=== PATIENT | male | born 1955 | race Caucasian/White ===

== ENCOUNTER 2017-04-05 11:14 | Day surgery (SDC) | payer BC ==
[2017-04-03 13:05] LABS: HEMATOCRIT 30.1 % (40.0-51.0); HEMOGLOBIN 10.4 g/dL (13.6-17.8)
[2017-04-03 13:18] LABS: BUN (BLOOD UREA NITROGEN) 12 MG/DL (6-23); CALCIUM, SERUM 8.6 MG/DL (8.5-10.4); CHLORIDE, SERUM 108 MMOL/L (96-112); CO2 (CARBON DIOXIDE) 27 MMOL/L (24-34); CREATININE 1.04 MG/DL (0.70-1.30); GFR AFRICAN AMERICAN 88 ML/MIN (>=60); GFR NON AFRICAN AMERICAN 76 ML/MIN (>=60); GLUCOSE, SERUM 162 MG/DL (60-99); POTASSIUM, SERUM 4.2 MMOL/L (3.5-5.3); SODIUM, SERUM 143 MMOL/L (135-148)
--- NOTE | ~2017-04-05 | OP ---
Record Of Operation [facility] [address] [place]. [address] NAME: JESÚS GONZALEZ : 51 [place] [facility] [place] [id number] AGE: 61 ADM/REG DATE : 04/05/17 MR#: [id number] REPORT SERV DATE: 04/05/17 DICTATED BY: ZOILA LUQUE DATE: 04/05/17 REPORT STATUS : Draft TRANSCRIBED BY: PEARL DATE: 04/05/17 DATE OF PROCEDURE: 04/05/2017 PREPROCEDURE DIAGNOSIS: Rectal polyp. POSTPROCEDURE DIAGNOSIS: Rectal mass. PROCEDURE: Transanal excision. HEEL EDGE INKER MACHINE: Pavan Babcock. DESCRIPTION OF PROCEDURE: The patient was taken to the operating room, induced under general anesthesia, placed into the prone galo-knife position, prepped and draped in the usual sterile fashion. A pudendal nerve block was placed with a total of 10 mL of a 1:1 mixture of 1% lidocaine and 0.25% Sensorcaine injected locally and bilaterally. Digital rectal exam was performed. The lesion was palpable at the right posterior quadrant. This was initially identified using a small, then medium lighted Hill-Bey anoscope; then in order to get a circumferential margin of 1 cm, it was switched to clear plastic operating anoscopes. These were sized up until the entire lesion could be identified as a 1 cm margin was marked out using cautery. It was removed full thickness, placed on a suture card and marked with a double stitch at the dentate line; long stitch on the left side; and short stitch superiorly. This was communicated to Dr. Bernal, the pathologist before she received the specimen. Then it was closed using several running locking sutures in segments in order to close the entire defect. Proctoscopy was performed to confirm that the entire defect was indeed closed and that the lumen was intact. The patient was cleaned and dried followed by two 4x4s, peripad, and mesh panties. He tolerated the procedure well. FELISHA/PEARL Zoila Luque M.D. / [id number] CC: Garland Carvalho M.D. Paul Lawrence, M.D. Paul Brundage
[~2017-04-05 11:14] MED LIST: AMARYL2 PO; COREG12 PO; CRESTOR10 PO; CYMBALTA60 PO; FERROUS SULF325 M1 PO; GLUCOPHAGE1000 MG PO; LOTE40 PO; NORCO1 TAB PO; SYN.05 PO; VITAMIN D2000 UNIT PO; XANAX1 MG PO
== END 2017-04-05 20:10 | disposition home or self-care (01) ==
LOC: SDC 11:14
PROVIDERS: Surgery
PROC: 0DBP0ZZ Excision of Rectum, Open Approach (ICD-10-PCS; principal; 2017-04-05 12:45)
DX: C20 Malignant neoplasm of rectum (principal); I10 Essential (primary) hypertension; E11.9 Type 2 diabetes mellitus without complications; F41.9 Anxiety disorder, unspecified; G89.29 Other chronic pain; D64.9 Anemia, unspecified; Z98.890 Other specified postprocedural states; Z88.1 Allergy status to other antibiotic agents
CPT/HCPCS: 80048; 82962; 85014; 85018; 88307; 88341; 88342; 93005; A9270-GY; J1170; J2250; J2405; J2710; J2795; J3010